=== PATIENT | male | born 1960 | race Caucasian/White ===

== ENCOUNTER 2016-04-16 12:10 | Emergency (ER) | payer BC ==
[~2016-04-16] VITALS: Ht 190.5 cm; Wt 74.8 kg
[~2016-04-16 12:10] MED LIST: KENALOG 0.1% CR15 GM APPLIC; NKM
--- NOTE | 2016-04-16 12:38 | Emergency Room Report ---
History of Present Illness General Chief Complaint: Male Urogenital Problems Present Illness HPI 56-year-old male presents emergency department complaining of testicular and penile swelling since this a.m.. patient denies penile discharge or obstruction of urination patient denies fevers chills or lesions. denies hematuria, dysuria , frequency, urgency Patient denies history of STD. he states he has had similar symptom in the past which responded to Benadryl and steroids. Patient states he is uncircumcised. Denies recent unprotected intercourse. denies testicular pain. Denies CP, Palpitations, LOC, AMS, dizziness, Changes in Vision, Sensation, paresthesias, or a sudden severe headache. Allergies: Coded Allergies: No Known Allergies (Unverified , 08/31/13) Patient History Past Medical History: see triage record Past Surgical History: none Pertinent Family History: none Immunizations: UTD Reviewed Nursing Documentation: PMH: Agreed, PSxH: Agreed Nursing Documentation-PMH Past Medical History: No History, Except For Hx Cardiac Problems: Yes - STENT Review of Systems All Other Systems: negative except mentioned in HPI Physical Exam Vital Signs Date Time Temp Pulse Resp B/P Pulse Ox O2 Delivery O2 Flow Rate FiO2 04/16/16 12:30 98.1 57 18 141/94 100 Room Air Sp02 EP Interpretation: reviewed, normal General Appearance: no apparent distress, alert, GCS 15, non-toxic Head: normocephalic, atraumatic Eyes: bilateral eye PERRL, bilateral eye normal inspection ENT: hearing grossly normal, normal pharynx, no angioedema, normal voice Neck: full range of motion, supple/symm/no masses Respiratory: chest non-tender, lungs clear, normal breath sounds, speaking full sentences Cardiovascular #1: regular rate, rhythm, no edema Cardiovascular #2: 2+ radial (R), 2+ radial (L) Gastrointestinal: normal bowel sounds, non tender, soft, no guarding, no rebound Rectal: deferred Genitourinary: normal inspection, no CVA tenderness, other - testicular and penile shaft edema noted, pt is circumcised, no testicular pain, cremesteric reflex is intact, no lesions, no erythema Musculoskeletal: back normal, gait/station normal, normal range of motion, non- tender, no calf tenderness Neurologic: alert, oriented x3, responsive, motor strength/tone normal, sensory intact, speech normal Psychiatric: judgement/insight normal, memory normal, mood/affect normal, no suicidal/homicidal ideation Skin: normal color, no rash, warm/dry, well hydrated Lymphatic: no adenopathy Medical Decision Making PA Attestation Dr. Hagan is my supervising Physician whom patient management has been discussed with. Diagnostic Impression: Primary Impression: Genital edema, male ER Course Pt. presents to the ED c/o testicular an d penile swelling since this am. reports one similar episode in the past. Patient denies any discharge, urinary obstruction, hx of STI or recent unprotected intercourse. denies testicular pain. Ddx considered but are not limited to testicular torsion, epididymitis, orchitis , abscess, hernia, edema, infection, STI Vital signs: are WNL, pt. is afebrile H&PE are most consistent with genital edema ORDERS: None required at this time , as the dx is clinical ED INTERVENTIONS: - 20mg Lasix PO - D/w the patient will be treating him with diuretic medication, also discussed symptoms that would indicate prompt return to the emergency department DISCHARGE: At this time pt. is stable for d/c to home. Will provide printed patient care instructions, and any necessary prescriptions. Care plan and follow up instructions have been discussed with the patient prior to discharge. Last Vital Signs Date Time Temp Pulse Resp B/P Pulse Ox O2 Delivery O2 Flow Rate FiO2 04/16/16 12:30 98.1 57 18 141/94 100 Room Air Disposition: HOME, SELF-CARE Condition: Stable Scripts Furosemide* (LASIX*) 20 Mg Tablet 20 MG ORAL TWICE A DAY, #10 TAB take twice a day as needed for swelling, discontinue use when swelling has subsided. Prov: Rosemary Garg 04/16/16 Patient Instructions: Edema Additional Instructions: Take medications as directed. Follow up with PCP in 3-5 days Return sooner to ED if new symptoms occur, or current symptoms become worse. Rosemary Garg Apr 16, 2016 12:38
[2016-04-16 13:02] VITALS: BP 141/94
[2016-04-16 13:04] VITALS: BP 141/94
[2016-04-16] MEDS ORDERED: LASIX20 M1 ORAL (13:04)
== END 2016-04-16 13:19 | disposition home or self-care (01) ==
LOC: EMR 12:40
DX: N44.8 Other noninflammatory disorders of the testis (principal)
CPT/HCPCS: 99283

== ENCOUNTER 2017-01-06 00:42 | Emergency (ER) | payer BC ==
[~2017-01-06] VITALS: Ht 190.5 cm; Wt 77.1 kg
[~2017-01-06 00:42] MED LIST changes: +LASIX20 M1 ORAL
[2017-01-06] MEDS ORDERED: PRAVASTATIN SOD20 M1 ORAL (00:59)
[2017-01-06] MEDS ORDERED: LISINOPRIL20 MG ORAL (00:59)
[2017-01-06 01:00] VITALS: BP 143/86
[2017-01-06] MEDS ORDERED: PREDNISONE20 MG ORAL (01:46)
[2017-01-06] MEDS ORDERED: BENADRYL25 MG ORAL (01:46)
--- NOTE | 2017-01-06 01:46 | Emergency Room Report ---
History of Present Illness General Chief Complaint: Allergic Reaction Source: Patient Present Illness HPI This is a 56-year-old male present with a rash. Onset for the last couple days. 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 When he got home he developed a rash to his double area. Later on developed one on his right elbow area. In today to his body. Itching in nature. This occurred in nature. He did not know if his poison keaton or poison oak exposure. Denies any other complaint. No fever chills no nausea no vomiting. Allergies: Coded Allergies: No Known Allergies (Unverified , 08/31/13) Patient History Past Medical History: see triage record, old chart reviewed Past Surgical History: other Pertinent Family History: none Social History: Denies: smoking Immunizations: other Reviewed Nursing Documentation: PMH: Agreed, PSxH: Agreed Nursing Documentation-PMH Past Medical History: No History, Except For Hx Cardiac Problems: Yes - 2 stents Hx Hypertension: Yes Review of Systems Eye: Denies: eye pain, blurred vision ENT: Denies: ear pain, nose congestion, throat swelling Respiratory: Denies: cough, shortness of breath Cardiovascular: Denies: chest pain, palpitations Gastrointestinal: Denies: abdominal pain, diarrhea, nausea, vomiting Musculoskeletal: Denies: back pain, joint pain Skin: Denies: rash Neurological: Denies: headache, numbness Endocrine: Denies: increased thirst, increased urine Hematologic/Lymphatic: Denies: easy bruising All Other Systems: negative except mentioned in HPI Physical Exam Vital Signs Date Time Temp Pulse Resp B/P (MAP) Pulse Ox O2 Delivery O2 Flow Rate FiO2 01/06/17 00:52 97.5 56 17 143/86 98 Room Air vitals unremarkable Sp02 EP Interpretation: reviewed, normal General Appearance: well appearing, no apparent distress, alert Head: normocephalic, atraumatic Eyes: bilateral eye PERRL, bilateral eye EOMI ENT: hearing grossly normal, normal pharynx Neck: full range of motion, supple, no meningismus Respiratory: chest non-tender, lungs clear, normal breath sounds Cardiovascular #1: regular rate, rhythm, no murmur Gastrointestinal: normal bowel sounds, non tender, no mass, no organomegaly, no bruit, non-distended Musculoskeletal: back normal, gait/station normal, normal range of motion Neurologic: alert, oriented x3 Psychiatric: mood/affect normal Skin: warm/dry, other - He has crusting/vesicular rash on both double area. Also scattered one on his left torso/chest area. Medical Decision Making Diagnostic Impression: Primary Impression: Poison keaton dermatitis ER Course Patient with a poison keaton/poison oak dermatitis. We'll treat with steroids since is diffuse in nature. No evidence of herpetic lesion. No evidence of abscess. We'll discharge home. Last Vital Signs Date Time Temp Pulse Resp B/P (MAP) Pulse Ox O2 Delivery O2 Flow Rate FiO2 01/06/17 00:52 97.5 56 17 143/86 98 Room Air Status: improved Disposition: HOME, SELF-CARE Condition: Stable Scripts Diphenhydramine Hcl* (BENADRYL*) 25 Mg Capsule 50 MG ORAL Q6H Y for Itching, #30 CAP Prov: TANESHA GRIFFITHS M.D. 01/06/17 Prednisone* (PREDNISONE*) 20 Mg Tablet 40 MG ORAL DAILY, #8 TAB Prov: TANESHA GRIFFITHS M.D. 01/06/17 Referrals: NOT CHOSEN [facility]/,REFERRING (PCP) Additional Instructions: Followup with your DrVenkat in 2-3 days. Return if symptom worsen. ATNESHA GRIFFITHS M.D. Jan 06, 2017 01:46
[2017-01-06 01:56] VITALS: BP 143/86
== END 2017-01-06 01:54 | disposition home or self-care (01) ==
LOC: EMR 01:30
DX: L23.7 Allergic contact dermatitis due to plants, except food (principal); I10 Essential (primary) hypertension
CPT/HCPCS: 99284